=== PATIENT | female | born 1955 | race Caucasian/White ===

== ENCOUNTER 2019-11-10 13:26 | Outpatient (CLI) | payer MEDICARE, OTHER, SELFPAY ==
--- NOTE | ~2019-11-10 | MM_ITS ---
EXAMINATION: [place] [facility] [place] HISTORY: Screening mammogram TECHNIQUE: Craniocaudal and mediolateral oblique 3-D tomosynthesis images were obtained and synthetic 2-D images were generated. CAD analysis was submitted and interpreted. COMPARISON: 06/11/2018, 12/24/2016, 12/13/2015 BREAST PARENCHYMAL COMPOSITION: There are scattered areas of fibroglandular density. FINDINGS: There is no evidence of suspicious mass, calcification, or architectural distortion to sugg est malignancy in either breast. There has been no suspicious interval change. IMPRESSION: 1. No mammographic evidence of malignancy. 2. Recommend routine screening mammography in one year. BI-RADS Category 1: Negative Reviewed, dictated and finalized at location A. ANICAL SYSTEMS DESIGNER
== END 2019-11-10 13:27 | disposition home or self-care (01) ==
LOC: ANHIMG 13:32
PROVIDERS: Visit Provider Nurse Practitioner
DX: Z12.31 Encounter for screening mammogram for malignant neoplasm of breast (principal)
CPT/HCPCS: 77063; 77067

== ENCOUNTER 2019-11-10 14:21 | Outpatient (CLI) | payer MEDICARE, OTHER, SELFPAY ==
--- NOTE | ~2019-11-10 | CT_ITS ---
EXAMINATION:CT chest wo con DATE: 11/10/2019 14:52 INDICATION: Lung nodule. TECHNIQUE: Computed tomography (CT) of the chest was performed without intravenous contrast. Automate d exposure control and iterative reconstruction technique were employed. The dose-length product (DLP ) was 240.39 mGy-cm. COMPARISON: Chest CT 04/15/2019, 01/08/2018, 08/26/2017 FINDINGS: The lungs demonstrate mild atelectasis and scarring bilaterally. There is mild bronchiectas is in the inferior lungs. There is mucous plugging in the lower lobes. There are tree-in-bud opacitie s and small centrilobular nodules in the lungs with a lower lung predominance, consistent with chroni c infection. The largest nodule measures 4 mm. Calcified right lung nodules are consistent with old g ranulomatous disease. No pleural effusion. The heart size is normal. No pericardial effusion. 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 There is severe cervical spondylosis a nd moderate thoracic spondylosis. IMPRESSION: 1. Widespread mild chronic infection in the lungs. 2. Mild bronchiectasis in the lungs with a lower lung predominance. Reviewed, dictated and finalized at location A. TROCARDIOGRAPH OPERATOR
== END 2019-11-10 14:22 | disposition home or self-care (01) ==
PROVIDERS: Visit Provider Internal Medicine Pulmonary Disease
DX: R91.1 Solitary pulmonary nodule (principal); R91.8 Other nonspecific abnormal finding of lung field
CPT/HCPCS: 71250; 77063; 77067

== ENCOUNTER 2020-11-03 09:57 | Outpatient (CLI) | payer MEDICARE, OTHER, SELFPAY ==
--- NOTE | ~2020-11-03 | CT_ITS ---
EXAMINATION: CT diagnostic chest wo con DATE: 11/03/2020 10:24 INDICATION: Lung nodule TECHNIQUE: Computed tomography (CT) of the chest was performed without intravenous contrast. The dose -length product (DLP) was 105.14 mGy-cm. Automated exposure control and iterative reconstruction tech [employer] were employed. COMPARISON: 11/10/2019, 04/15/2019 FINDINGS: Again seen are several areas of clustered tree-in-bud nodules with a lower lung zone predom inance. A few areas of mucous plugging are again seen in the lower lobes. There is atelectasis of the left upper lobe. No pleural effusion or pneumothorax is identified. No suspicious pulmonary nodules are identified. Calcified nodules of the right lung are consistent with old granulomatous disease. No pathologically enlarged thoracic lymph nodes are identified. The heart size is normal. There is mode rate thoracic spondylosis. IMPRESSION: 1. Stable lung findings consistent with chronic infection. Reviewed, dictated and finalized at location A. RVISOR COKE HANDLING
== END 2020-11-03 09:58 | disposition home or self-care (01) ==
PROVIDERS: PCP Internal Medicine Pulmonary Disease
DX: R91.8 Other nonspecific abnormal finding of lung field (principal)
CPT/HCPCS: 71250

== ENCOUNTER 2020-11-28 13:39 | Outpatient (CLI) | payer MEDICARE, OTHER, SELFPAY ==
--- NOTE | ~2020-11-28 | DEXA_ITS ---
Bone Density Report Name: Elsie Sullivan Age: 64 Sex: Female Ethnicity: White Date of : 1955 Indication: osteopenia; height loss; postmenopausal; asthma or emphysema; Referring Provider: Garry, Eleni Study: Bone densitometry was performed. Exam Date: November 28, 2020 Accession number: [id number] Bone Density: Region BMD T-score Z-score Classification AP Spine (L1-L4) 1.021 -0.2 1.7 Normal Femoral Neck (Left) 0.632 -2.0 -0.3 Osteopenia Total Hip (Left) 0.803 -1.1 0.2 Osteopenia Total Hip Bilateral Avg 0.792 -1.2 0.1 Osteopenia Femoral Neck (Right) 0.630 -2.0 -0.4 Osteopenia Total Hip (Right) 0.781 -1.3 0.0 Osteopenia World Health Organization criteria for BMD impression classify patients as: Normal (T-score at or above -1.0), Osteopenia (T-score between -1.0 and -2.5), or Osteoporosis (T-score at or below -2.5). 10-year Fracture Risk(1): Major Osteoporotic Fracture 10% Hip Fracture 1.6% Reported Risk Factors: [place] (), Neck BMD=0.630, BMI=31.1 (1) FRAX(R) Version 3.08. Fracture probability calculated for an untreated patient. Fracture probability may be lower if the patient has received treatment. Previous Exams: Region Exam Age BMD T-score BMD Change BMD Change Date g/cm2 vs Baseline vs Previous AP Spine(L1-L4) 11/28/2020 64 1.021 -0.2 -0.008(-0.8%)# 0.092(9.9%)* 12/24/2016 61 0.929 -1.1 -0.100(-9.8%)# -0.053(-5.4%)* 08/11/2014 58 0.982 -0.6 -0.047(-4.6%)# -0.047(-4.6%)# 09/10/2010 54 1.029 -0.2 Total Hip(Left) 11/28/2020 64 0.803 -1.1 0.020(2.5%)# -0.012(-1.5%) 12/24/2016 61 0.815 -1.0 0.032(4.1%)# 0.007(0.8%) 08/11/2014 58 0.809 -1.1 0.025(3.2%)# 0.025(3.2%)# 09/10/2010 54 0.783 -1.3 Total Hip(Right) 11/28/2020 64 0.781 -1.3 0.001(0.1%)# -0.052(-6.3%)* 12/24/2016 61 0.833 -0.9 0.053(6.8%)# -0.010(-1.1%) 08/11/2014 58 0.843 -0.8 0.063(8.0%)# 0.063(8.0%)# 09/10/2010 54 0.780 -1.3 *Denotes significance at 95% confidence level, LSC for AP Spine = 0.022 g/cm2, LSC for Total Hip = 0.027 g/cm2 Clinical Information Provided by Patient: Has used the following medications: Calcium Has the following medical conditions: Asthma or Emphysema Patient maximum height was 67 Menopause Age: 48 No regular weight bearing exercise Drinks caffeinated beverages Onset of menses at age 13 Number of children 2 Impression: Tulio pérez
--- NOTE | ~2020-11-28 | MM_ITS ---
EXAMINATION: MM screening [facility] HISTORY: Screening mammogram TECHNIQUE: Craniocaudal and mediolateral oblique 3-D tomosynthesis images were obtained and synthetic 2-D images were generated. CAD analysis was submitted and interpreted. COMPARISON: , 06/11/2018, 12/2016 bilateral digital screening mammogram examinations BREAST PARENCHYMAL COMPOSITION: There are scattered areas of fibroglandular density. FINDINGS: Benign-appearing stable circumscribed approximately 4 mm left axillary tail lymph node. The re is no evidence of suspicious mass, calcification, or architectural distortion to suggest malignanc y in either breast. There has been no suspicious interval change. IMPRESSION: 1. No mammographic evidence of malignancy. 2. Recommend routine screening mammography in one year. BI-RADS Category 2: Benign finding(s). Reviewed, dictated and finalized at location A. [facility]
== END 2020-11-28 13:40 | disposition home or self-care (01) ==
PROVIDERS: PCP Internal Medicine Pulmonary Disease; Visit Provider Nurse Practitioner
DX: Z12.31 Encounter for screening mammogram for malignant neoplasm of breast (principal); Z78.0 Asymptomatic menopausal state; M85.852 Other specified disorders of bone density and structure, left thigh; M85.851 Other specified disorders of bone density and structure, right thigh
CPT/HCPCS: 77063; 77067; 77080

== ENCOUNTER → 2022-03-07 13:57 | Outpatient (CLI) | payer MEDICARE, OTHER, SELFPAY ==
--- NOTE | ~2022-03-07 | CT_ITS ---
EXAMINATION: CT diagnostic chest wo con DATE: 03/07/2022 14:20 INDICATION: Lung nodule TECHNIQUE: Computed tomography (CT) of the chest was performed without intravenous contrast. Automate d exposure control and iterative reconstruction technique were employed. Exam dose: 88.44 mGy-cm tot al exam DLP. COMPARISON: November 03, 2020 CT chest FINDINGS: New 4 mm right apical nodular density (series 4 image 23). There are scattered tree-in-bud infiltrates involving particularly middle lobe and right lower lobe, increased since 11/03/2020, likely infectious or inflammatory. No other significant new mass or finding is noted. There is chronic discoid atelectasis or scarring a t the lingula. Normal heart size. No pericardial or pleural effusion. Small sliding hiatal hernia. Cholelithiasis. Normal morphology of the adrenal glands. No suspicious osteolytic or osteoblastic lesions are noted. IMPRESSION: Millimeter right apical nodule and increased tree-in-bud infiltrates at middle and right lower lobe since November 03, [address] Six-month CT follow-up is recommended Reviewed, dictated and finalized at Location A. Reviewed, dictated and finalized at location A. IMPRESSION: Millimeter right apical nodule and increased tree-in-bud infiltrate s at middle and right lower lobe since November 03, [address] Six-month CT follow-up is recommended
== END ==
PROVIDERS: PCP Family Medicine
DX: R91.8 Other nonspecific abnormal finding of lung field (principal)
CPT/HCPCS: 71250

== ENCOUNTER → 2022-03-07 14:02 | Outpatient (CLI) | payer MEDICARE, OTHER, SELFPAY ==
--- NOTE | ~2022-03-07 | MM_ITS ---
EXAMINATION: MM screening [facility] HISTORY: Screening TECHNIQUE: Craniocaudal and mediolateral oblique 3-D tomosynthesis images were obtained and synthetic 2-D images were generated. CAD analysis was submitted and interpreted. COMPARISON: Comparison to multiple prior studies sequentially, with oldest reviewed study dated 08/22. BREAST PARENCHYMAL COMPOSITION: There are scattered areas of fibroglandular density. FINDINGS: There is no evidence of suspicious mass, calcification, or architectural distortion to sugg est malignancy in either breast. There has been no suspicious interval change. IMPRESSION: 1. No mammographic evidence of malignancy. 2. Recommend routine screening mammography in one year. BI-RADS Category 1: Negative Reviewed, dictated and finalized at location A.
== END ==
PROVIDERS: PCP Family Medicine; Visit Provider Obstetrics & Gynecology Gynecology
DX: Z12.31 Encounter for screening mammogram for malignant neoplasm of breast (principal)
CPT/HCPCS: 77063; 77067

== ENCOUNTER 2022-09-03 13:10 | Outpatient (CLI) | payer MEDICARE, OTHER, SELFPAY ==
--- NOTE | ~2022-09-03 | CT_ITS ---
EXAMINATION: CT diagnostic chest wo con DATE: 09/03/2022 14:18 INDICATION: Pulmonary nodules TECHNIQUE: Computed tomography (CT) of the chest was performed without intravenous contrast. The dose -length product (DLP) was 109.87 mGy-cm. Automated exposure control and iterative reconstruction tech nique were employed. COMPARISON: 03/07/2022, 11/03/2020 FINDINGS: Again seen are multiple small nodules of the right lung apex, without significant change. T here is mildly increasing nodules of the left lung apex. Additional scattered pulmonary nodules are s een in the right upper lobe, the right middle lobe, and the lingula. No pleural effusion or pneumotho rax. Chronic calcified nodules of the right upper lobe are consistent with old granulomatous disease. 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 No pathologically enla rged thoracic lymph nodes are identified. The heart size is normal. Calcified coronary artery atheros clerosis is noted. Stones are present in the nondistended gallbladder. There is mild thoracic spondyl osis. IMPRESSION: 1. Scattered pulmonary nodules, stable in the right lung apex, slightly increased in the left lung ap ex, and some new in the right lung, likely sequela of chronic infection. Reviewed, dictated and finalized at location A. X CASTER IMPRESSION: 1. Scattered pulmonary nodules, stable in the right lung apex, slightly increas ed in the left lung apex, and some new in the right lung, likely sequela of chr onic infection.
== END 2022-09-03 13:11 | disposition home or self-care (01) ==
LOC: ANHIMG 13:15
PROVIDERS: Visit Provider Internal Medicine Pulmonary Disease
DX: R91.8 Other nonspecific abnormal finding of lung field (principal)
CPT/HCPCS: 71250

== ENCOUNTER 2025-07-21 10:02 | Outpatient (CLI) | payer MEDICARE, OTHER, SELFPAY ==
--- OUTSIDE RECORDS SUMMARY | 2025-07-21 11:00 | XMS_ITS | Encounter Summary ---
Author Organization [facility] Address [facility] [place] [address] Care Team Providers Care Caster Helper Name Role Phone Anthony Oliver DO Primary Care Provider [phone] Dotty Concepcion NP Primary Care Provider [phone] Rambo Edward MD Primary Care Provider [phone] Zayda Reyes MD Primary Care Provider [phone] Butch Ulrich MD Primary Care Provider [phone] Encounter Details Date Type Department Care Team (Latest Contact Info) Description 06/19/2018 Abstract [facility] Anthony Oliver DO [address] [id number] Social History Tobacco Use Types Packs/Day Years Used Date Smoking Tobacco: Never Assessed Comments Unknown Sex and Gender Information Value Date Recorded Sex Assigned at Not on file Legal Sex Female 10:07 AM CDT Gender Identity Not on file Sexual Orientation Not on file documented as of this encounter Plan of Treatment Not on file documented as of this encounter Visit Diagnoses Not on filedocumented in this encounter Care Teams Caster Helper Relationship Specialty Start Date End Date Anthony Oliver DO PCP - General FAMILY PRACTICE 02/28/16 01/19/20 oDtty Concepcion NP [address] [place] [address] PCP - General NURSE PRACTITIONER 01/20/20 05/03/20 Rambo Edward MD [address] [place] [address] PCP - General FAMILY PRACTICE 05/04/20 04/18/22 Zayda Reyes MD [facility] [place] [address] PCP - General FAMILY PRACTICE 04/19/22 10/15/23 Butch Ulrich MD [address] [place] [address] PCP - General FAMILY PRACTICE 10/16/23 documented as of this encounter
--- OUTSIDE RECORDS SUMMARY | 2025-07-21 11:00 | XMS_ITS | Encounter Summary ---
Author Organization [facility] Address [facility] [place] [address] Care Team Providers Care Icing Maker Name Role Phone Butch Ulrich MD Primary Care Provider [phone] Encounter Details Date Type Department Care Team (Late st Contact Info) Description 10/15/2024 [facility] [address] [place] [address] Zayda Reyes MD [address] [place] [address] abn MG Social History Tobacco Use Types Packs/Day Years Used Date Smoking Tobacco: Former Smokeless Tobacco: Never Alcohol Use Standard Drinks/Week Comments Yes 0 (1 standard drink = 0.6 oz pur e alcohol) wine daily PHQ-2 Answer Date Recorded Patient Health Questionnaire-2 Score 0 05/12/2023 Comments No Sex and Gender Information Value Date Recorded Sex Assigned at Not on file Legal Sex Female 10:07 AM CDT Gender Identity Not on file Sexual Orientation Not on file documented as of this encounter Plan of Treatment Not on file documented as of this encounter Visit Diagnoses Not on filedocumented in this encounter Additional Health Concerns Assessment Noted Time PHQ-9 Depression Total Score: 0 05/12/20 23 8:08 AM CDT documented as of this encounter Care Teams Icing Maker Relationship Specialty Start Date End Date Butch Ulrich MD PCP - General FAMILY PRACTICE 10/16/23 documented as of this encounter
--- OUTSIDE RECORDS SUMMARY | 2025-07-21 11:00 | XMS_ITS | Encounter Summary ---
Author Organization [facility] Address [address] [place] [address] Care Team Providers Care Leveler Helper Name Role Phone Zayda Reyes MD Primary Care Provider [phone] Butch Ulrich MD Primary Care Provider [phone] Encounter Details Date Type Department Care Team (Late st Contact Info) Description 03/19/2023 MyChart Message Enc [facility] Medical [facility] - [facility] [address] [place], [place] [id number] [facility] [place] Provider Air Quality Message Social History Tobacco Use Types Packs/Day Years Used Date Smoking Tobacco: Former Smokeless Tobacco: Never Alcohol Use Standard Drinks/Week Comments Yes 0 (1 standard drink = 0.6 oz pur e alcohol) wine daily PHQ-2 Answer Date Recorded Patient Health Questionnaire-2 Score 0 01/31/2023 Comments No Sex and Gender Information Value [...] Assessment Noted Time PHQ-9 Depression Total Score: 4 05/08/20 22 8:09 AM CDT documented as of this encounter Care Teams Leveler Helper Relationship Specialty Start Date End Date Zayda Reyes MD [address] [id number] PCP - General FAMILY PRACTICE 04/19/22 10/15/23 Butch Ulrich MD [address] [place] [address] PCP - General FAMILY PRACTICE 10/16/23 documented as of this encounter
--- OUTSIDE RECORDS SUMMARY | 2025-07-21 11:00 | XMS_ITS | Clinical Summary ---
Author Organization [facility] Address [address] [place] [address] Care Team Providers Care Client Care Representative Name Role Phone Butch Ulrich MD Primary Care Provider [phone] Allergies No known active allergies Medications Ventolin HFA 90 mcg/actuation inhalerIndications :Asthma, unspecified asthma severity, unspecified whether complicated, unspecified whether persistent Inhale 2 puffs every 4 (four) hours as needed for wheezing or shortness of breath 1 each 3 07/06/20 21 Active fluticasone propionate (FLONASE) 50 mcg/actuation nasal spray daily Active tezepelumab-ekko (TEZSPIRE) 210 mg/1.91 mL (110 mg/mL) syringe 210 mg (1.91 mL) Active gabapentin (NEURONTIN) 300 mg capsule Take 1 capsule (300 mg total) by mouth 2 (two) times a day 04/13/20 24 Active venlafaxine XR (EFFEXOR-XR) 150 mg 24 hr capsule Take 1 capsule (150 mg total) by mouth daily 03/09/20 24 Active zolpidem (AMBIEN) 10 mg tablet Take 1 tablet (10 mg total) by mouth nightly 04/13/20 24 Active ipratropium-albute roL (DUO-NEB) 0.5-2.5 mg/3 mL nebulizer solution Take 3 mL by nebulization 4 (four) times a day 360 mL 2 11/16/19 25 Active levothyroxine (SYNTHROID) 100 mcg tabletIndications: Acquired hypothyroidism Take 1 tablet (100 mcg total) by mouth daily 90 tablet 1 03/08/20 25 025 Active tirzepatide, weight loss, (Zepbound) 2.5 mg/0.5 mL solution vialIndications:Ov erweight with body mass index (BMI) of 29 to 29.9 in adult Inject 0.5 mL (2.5 mg total) under the skin once a week This medication record is used for ordering a prescription for Charo Direct Tristan 2 mL 04/29/20 25 Active Active Problems Problem Noted Date Diagnosed Date Overweight with body mass in dex (BMI) of 29 to 29.9 in adult 03/08/2025 Assessment & Plan (03/08/2025 2:18 PM CDT): Chronic. Uncontrolled. Goal: 165lb Recommend Nutritional every other Friday Seminar. Recommended Medication :start Zepbound Asthma 05/15/2016 Assessment & Plan (05/12/2024 2:40 PM CDT): The patient continues to benefit from Breo 1 puff daily and p.r.n. albuterol. She continues on monthly Tezspire injections. Assessment & Plan (08/20/2023 10:25 AM OCCUPATIONAL HEALTH PHYSICIAN): The patient has asthma is under good control with Breo 1 puff daily and p.r.n. albuterol. She continues on monthly Tezspire injections. Assessment & Plan (04/18/2023 10:16 AM CDT): The patient will continue with Breo. She is an albuterol inhaler to use on a p.r.n. basis and up 4 times a day as needed for symptom control. The patient will continue to follow with manager organizational and Tezpire monthly Assessment & Plan (10/02/2022 10:24 AM OCCUPATIONAL HEALTH PHYSICIAN): The patient is breathing continues to do well with Breo 1 puff daily and albuterol on a p.r.n. basis. She continues with the monthly Tezspire injections. Assessment & Plan (03/20/2022 2:58 PM CDT): The patient continues to do well on Breo 1 puff daily and albuterol p.r.n.. She is asymptomatic from a pulmonary perspective. She has been switched to Tespir injections monthly through the manager organizational's office. Assessment & Plan (07/06/2021 9:59 AM CDT): The patient will continue with Breo 1 puff daily to treat asthma symptoms. The patient is also undergoing treatments with an manager organizational. The patient will continue with albuterol inhaler/nebulizer on a p.r.n. basis and up to 4 times a day as needed for symptom control. Assessment & Plan (11/17/2020 9:52 AM OCCUPATIONAL HEALTH PHYSICIAN): The patient will continue with Breo 1 puff daily to treat asthma symptoms. The patient will also continue with allergy injections on a monthly basis. The patient has an albuterol/nebulizer at home that she may use p.r.n. up to 4 times a day as needed to control her asthma symptoms. Assessment & Plan (03/22/2020 10:25 AM CDT): The patient will continue to use her Breo 1 puff daily. The patient will also continue to get her allergy injections. The patient has an albuterol nebulizer as needed and up to 4 times a day. Cough 05/15/2016 Assessment & Plan (08/20/2023 10:25 AM OCCUPATIONAL HEALTH PHYSICIAN): Her cough has resolved. Assessment & Plan (04/18/2023 10:16 AM CDT): The patient has an occasional nonproductive cough. Pulmonary nodules 05/15/2016 Assessment & Plan (05/12/2024 2:40 PM CDT): Her pulmonary nodules have been stable now for 2 years. I will not plan to follow any more chest CTs unless clinically warranted. Assessment & Plan (08/20/2023 10:25 AM OCCUPATIONAL HEALTH PHYSICIAN): Pulmonary nodules were stable or decreased in size on the last CT from 17 April 2023. I will repeat another chest CT without contrast in late September 2023. She will follow-up with me in 6 months. Assessment & Plan (04/18/2023 10:16 AM CDT): The patient completed a CT on 04/17/2023. We are awaiting the results. I have a call the patient once the results have posted. Assessment & Plan (10/02/2022 10:24 AM OCCUPATIONAL HEALTH PHYSICIAN): The patient does have new very tiny pulmonary nodules and she is asymptomatic. Findings are suggestive of IQRA but she is asymptomatic. I will follow another chest CT in 6 months. Assessment & Plan (03/20/2022 2:59 PM CDT): The patient is clinically symptomatic but has increased tree-in-bud opacities in a new right upper lobe 4 mm nodule. I will repeat another chest CT in 6 months. Assessment & Plan (07/06/2021 9:59 AM CDT): Pulmonary nodules will continue to be monitored with the CT scan. The patient does have a CT scan ordered for October 2021 at [facility] Assessment & Plan (11/17/2020 9:53 AM OCCUPATIONAL HEALTH PHYSICIAN): The patient will obtain another CT scan to monitor pulmonary nodules of October of 2021. This order has been provided to the patient. Assessment & Plan (03/22/2020 10:36 AM CDT): The CT scanner to [id number] shows a 4 mm nodule that is stable at this time. The patient will need a follow-up CT in October 2020. The patient will have completed in [facility] Resolved Problems Problem Noted Date Diagnosed Date Resolved Date Chronic obstructive pulmonar y disease, unspecified 05/15/2016 04/18/2023 Assessment & Plan (04/09/2019 10:25 AM CDT): Patient will continue with her Xolair injections. Encounters Date Type Department Care Team Description 07/08/2025 Telephone [facility] Pulmonology [address] [place] [phone] Tia Pena MD 06/09/2025 10:25 AM CDT Lab [facility] [address] [place] [id number] from Last 3 Months Immunizations Immunization Administration Dates Next Due Influenza, Trivalent, Preservative Free, Intramu scular 07/18/2016 Surgical History Surgery Date Site/Laterality Comments THYROIDECTOMY BREAST BIOPSY 08/01/2023 Right Medical History Medical History Date Comments Asthma COPD (chronic obstructive pulmonary disease) Family History Medical History Relation Name Comments Heart failure Father COPD Mother Relation Name Status Comments Father Mother Social History Tobacco Use Types Packs/Day Years Used Date Smoking Tobacco: Former Cigarettes Q uit: 2003 Smokeless Tobacco: Never Tobacco Cessation:Counseling Given: Not Answered AUDIT-C Answer Date Recorded Q1: How often do you have a drink containing alcohol? Never 03/08/2025 Q2: How many drinks containi ng alcohol do you have on a typical day when you are drinking? Patient does not drink Q3: How often do you have si x or more drinks on one occasion? Never 03/08/2025 Personal Safety Answer Date Recorded Have you ever been in or are you currently in a harmful physical or emotional relationship or is someone making you feel afraid or unsafe? Denies 10/05/2023 Comments No Sex and Gender Information Value Date Recorded Sex Assigned at Not on file Legal Sex Female 3:30 AM OCCUPATIONAL HEALTH PHYSICIAN Gender Identity Not on file Sexual Orientation Not on file Obstetrics History Para Term AB IAB SAB Ectopic Multiple Livin g Live Births 2 2 2 Date Outcome GA Total Labor Labor/2nd/3rd Weight Sex Type Anes PTL Gail A1 A5 Name Clin Term Term Last Filed Vital Signs Vital Sign Reading Time Taken Comments Blood Pressure 128/74 03/08/2025 2:00 PM CDT Pulse 81 03/08/2025 2:00 PM CDT Temperature 36.3 C (97.4 F) 03/08/2025 2:00 PM CDT Respiratory Rate 16 03/08/2025 2:00 PM CDT Oxygen Saturation 95% 03/08/2025 2:00 PM CDT Inhaled Oxygen Concentration - - Weight 85.8 kg (189 lb 1.6 oz) 03/08/2025 2:00 P M CDT Height 170.2 cm (5' 7) 03/08/2025 2:00 PM CDT Body Mass Index 29.62 03/08/2025 2:00 PM CDT Plan of Treatment Health Maintenance Due Date Last Done Comments Colon Cancer Screening-Colonoscopy 1955 Depression Screening 1955 Fall Risk Assessment 1955 Hepatitis C Screening 1955 Osteoporosis Screening-Bone Density Scan 1955 DTaP/Tdap/Td Vaccine (1 - Tdap) 1964 Hepatitis B Screening 12/19/1971 Zoster Vaccine (1 of 2) 12/19/2003 Pneumococcal vaccine 65+ (2 of 2 - PCV) 02/10/2014 02/10/2013 Well Visit 65+ 2018 Covid-19 Vaccine (5 - 2024-2 6 season) 2025 09/10/2021, 11/02/2020, 10/03/2020, Additional history exists Influenza Vaccine (#1) 2025 , 08/22/2020, 07/23/2019, Additional history exists Breast Cancer Screening-Mammogram 06/04/2025 024, 06/19/2023 Medical Devices Implanted Type Area Decorating Machine Tender Device Identifier Shelf Expiration Date Model / Serial / Lot [employer] 13cm Rigid End Bioabsorbable Net Top Rare/Endangered Species Specialist Breast Latex Free [id number] - [id number] Implanted:Qty: 1 on 08/01/2023 by Erick Johnston MD at [facility] [employer] [id number] 01/28/2024 SMARK-EVIV [id number] / / [id number] Procedures Procedure Name Priority Date/Time Associated Diagnosis Comments EGFR Routine 06/09/2025 10:32 AM CDT T3, FREE Routine 06/09/2025 10:32 AM CDT T4, FREE Routine 06/09/2025 10:32 AM CDT TSH Routine 06/09/2025 10:32 AM CDT LIPID PANEL Routine 06/09/2025 10:32 AM CDT COMPREHENSIVE METABOLIC PANEL Routine 06/09/2025 10:32 AM CDT DIAGNOSTIC MAMMOGRAM BILATERAL W JEB Schedule Routine, Read Routine (OP Routine) 06/04/2024 8:54 AM CDT Breast calcification, right from Last 3 Months or Most Recently Relevant to Health Maintenance Results * (ABNORMAL) eGFR (06/09/2025 10:32 AM CDT) eGFR 55(L) >=60 mL/min/1. 73 m2 Comment: Interpretive Data Reference Interval Normal >/= 90 mL/min/1.73m2 Mildly decreased* 60 - 89 mL/min/1.73m2 Mildly to moderately decreased 45 - 59 mL/min/1.73m2 Moderately to severely decreased 30 - 44 mL/min/1.73m2 Severely decreased 15 - 29 mL/min/1.73m2 Kidney Failure < 15 mL/min/1.73m2 *Relative to young adult level Estimated glomerular filtration rate is determined by the 2020 CKD-EPI equation recommended by the National Kidney Foundation (A Unifying Approach to GFR Estimation: Recommendations of the NKF-ASK Task Force on Reassessing the Inclusion of Race in Diagnosing Kidney Disease, JASN 202). The CKD-EPI equation should not be used for patients with unstable renal function and has not been validated in children and those over 70. Current interpretive data was last reviewed 2021. Testing performed by: [facility], [address] [place] [address]., [id number] Blood 06/09/2025 10:3 2 AM CDT 06/09/2025 10:47 AM CDT us Butch Ulrich MD LAB BLOOD ORDERABLES Final Resu lt [facility] [address] Department [place] [address] * T3, free (06/09/2025 10:32 AM CDT) Free T3 2.5 2.0 - 4.4 pg/mL Blood 06/09/2025 10:3 2 AM CDT 06/09/2025 12:24 PM CDT Butch Ulrich MD LAB BLOOD ORDERABLES Final Resu lt Performing Organization Address City/[facility] Co de Phone Number [address]REG[address] [place] [address] * TSH (06/09/2025 10:32 AM CDT) Thyroid Stimulating Hormone 0.38 0.30 - 4.20 mcIUnit/mL Comment:Testing performed by : [address] [address] Blood 06/09/2025 10:3 2 AM CDT 06/09/2025 10:47 AM CDT Butch Ulrich MD LAB BLOOD ORDERABLES Final Resu lt Performing Organization Address [facility] Co de Phone Number [address] [address] * T4, free (06/09/2025 10:32 AM CDT) Free T4 1.27 0.90 - 1.70 ng/dL Comment:Testing performed by : [address] [address] Blood 06/09/2025 10:3 2 AM CDT 06/09/2025 10:47 AM CDT Butch Ulrich MD LAB BLOOD ORDERABLES Final Resu lt Performing Organization Address [facility] Co de Phone Number GREG[address] [place] [address] * Lipid panel (06/09/2025 10:32 AM CDT) Cholesterol 175 30 - 199 mg/dL Comment: Interpretive Data Ages < or = 19 years Acceptable: <170 mg/dL Borderline high: 170-199 mg/dL High: >or= 200 mg/dL Ages > or = 20 years Desirable: <200 mg/dL Borderline high: 200-239 mg/dL High: >or= 240 mg/dL Literature References: 1. Expert Panel on Integrated Guidelines for Cardiovascular Health and Risk Reduction in Children and Adolescents. Pediatrics 2011;128:S213 2. NCEP Expert Panel. Circulation 2004;110:227 Current Interpretive Data was last revised on 2018. Testing performed by: [address] [address] Triglycerides 56 <=149 mg/dL [facility] Comment: Interpretive Data Ages < or = 9 years Acceptable: <75 mg/dL Borderline high: 75-99 mg/dL High: >or= 100 mg/dL Ages 10 to 20 years Acceptable: <90 mg/dL Borderline high: 90-129 mg/dL High: >or= 130 mg/dL Ages > or = 20 years Desirable: <150 mg/dL Borderline high: 150-199 mg/dL High: 200-499 mg/dL Very high: >or= 499 mg/dL Literature References: 1. Expert Panel on Integrated Guidelines for Cardiovascular Health and Risk Reduction in Children and Adolescents. Pediatrics 2011;128:S213 2. NCEP Expert Panel. Circulation 2003;110:227 Current Interpretive Data was last revised on 2018. Testing performed by: [address] [address] HDL 77 >=40 mg/dL [facility] Comment: Interpretive Data Ages < or = 19 years Acceptable: >45 mg/dL Borderline low: 40-45 mg/dL Low: <40 mg/dL Ages > or = 20 years Desirable: >or= 60 mg/dL Low: <40 mg/dL Literature References: 1. Expert Panel on Integrated Guidelines for Cardiovascular Health and Risk Reduction in Children and Adolescents. Pediatrics 2011;128:S213 2. NCEP Expert Panel. Circulation 2004;110:227 Current Interpretive Data was last revised on 2018. Testing performed by: [address] [address] LDL, calculated 87 <=129 mg/dL [facility] Comment: Interpretive Data Ages < or = 19 years Acceptable: <110 mg/dL Borderline high: 110-129 mg/dL High: >or= 130 mg/dL Ages > or = 20 years Optimal: <100 mg/dL Near optimal: 100-129 mg/dL Borderline high: 130-159 mg/dL High: >160 mg/dL Calculated using the Rohit LDL-C estimating equation. This equation was implemented on 2024. Prior to this date LDL-C was estimated using the Friedewald equation. Literature References: 1. Expert Panel on Integrated Guidelines for Cardiovascular Health and Risk Reduction in Children and Adolescents. Pediatrics 2011;128:S213 2. NCEP Expert Panel. Circulation 2004;110:227 3. Rohit Burnett et al. ROBERTO Cardiol. 2019January 20;5(5):540-548. doi: 10.1001/jamacardio.2020.0013 Current Interpretive Data was last revised on 2024. Testing performed by: [address] [address] Non-HDL Cholesterol 98 mg/dL [facility] Comment: Interpretive Data Ages < or = 19 years Acceptable: <120 mg/dL Borderline high: 120-144 mg/dL High: >145 mg/dL Ages > or = 20 years When triglycerides are >200 mg/dL, Non-HDL cholesterol is a secondary target of therapy with treatment goals that are 30 mg/dL greater than the LDL cholesterol target. Literature References: 1. Expert Panel on Integrated Guidelines for Cardiovascular Health and Risk Reduction in Children and Adolescents. Pediatrics 2011;128:S213 2. NCEP Expert Panel. Circulation 2004;110:227 Current Interpretive Data was last revised on 2018. Testing performed by: [address] [address] Chol/HDL ratio 2 [facility] Comment:Testing performed by : [address] [address] Blood 06/09/2025 10:3 2 AM CDT 06/09/2025 10:47 AM CDT Butch Ulrich MD LAB BLOOD ORDERABLES Final Resu lt [facility] [address] Department [place] [address] * (ABNORMAL) Comprehensive metabolic panel (06/09/2025 10:32 AM CDT) Sodium 140 135 - 145 mmol/L Comment:Testing performed by : [address] [address] Potassium, pl 3.9 3.3 - 4.9 mmol/L [facility] Comment:Testing performed by : [address] [address] Chloride 103 97 - 110 mmol/L [facility] Comment:Testing performed by : [address] [address] CO2 26 22 - 32 mmol/L [facility] Comment:Testing performed by : [address] [address] Anion gap 11 2 - 15 mmol/L [facility] Comment:Testing performed by : [address] [address] BUN 15 6 - 25 mg/dL [facility] Comment:Testing performed by : [address] [address] Creatinine 1.08 0.60 - 1.10 mg/dL [facility] Comment:Testing performed by : [address] [address] Glucose 108 70 - 199 mg/dL [facility] Comment: Interpretive Data Fasting glucose >/= 126 mg/dl is diagnostic for diabetes. Fasting is defined as no caloric intake for at least 8 hours. Fasting glucose between 100 mg/dl to 125 mg/dl is diagnostic of prediabetes. In a patient with classic symptoms of hyperglycemia or hyperglycemic crisis, a random glucose >/= 200 mg/dl is diagnostic for diabetes. In the absence of unequivocal hyperglycemia, results should be confirmed by repeat testing. The classification and Diagnosis of Diabetes Diabetes Care 202; 46: S19-S40. Current interpretive data was last revised 2022. Testing performed by: [address] [address] Calcium 8.0(L) 8.5 - 10.3 mg/dL [facility] Comment:Testing performed by : [address] [address] Bilirubin, total 0.3 0.1 - 1.2 mg/dL [facility] Comment:Testing performed by : [address] [address] Protein, pl 7.1 6.5 - 8.5 g/dL [facility] Comment:Testing performed by : [address] [address] Albumin 4.1 3.5 - 5.0 g/dL [facility] Comment:Testing performed by : [address] [address] Alk phos 81 40 - 130 Units/L [facility] Comment:Testing performed by : [address] [address] ALT 23 7 - 45 Units/L [facility] Comment:Testing performed by : [address] [address] AST 25 10 - 45 Units/L [facility] Comment:Testing performed by : [address] [address] Blood 06/09/2025 10:3 2 AM CDT 06/09/2025 10:47 AM CDT us Butch Ulrich MD LAB BLOOD ORDERABLES Final Resu lt Performing Organization Address City/State/[facility] Co de Phone Number [facility] [address] Department [place] [address] * Diagnostic Mammogram Bilateral W Jeb (06/04/2024 8:54 AM CDT) Anatomical Region Laterality Modality Breast Bilateral Mammography 06/04/2024 8:56 AM CDT Narrative 06/04/2024 8:57 AM CDT EXAM DESCRIPTION: DIAGNOSTIC MAMMOGRAM BILATERAL W JEB REASON FOR STUDY: 68-year-old woman comes in today follow-up of the right breast after a benign biopsy performed in July 2023, and screening of the left breast. COMPARISON: 08/01/2023, 07/11/2023, 06/19/2023. TECHNIQUE: CC and MLO digital breast tomosynthesis of both breasts with C view was performed. FINDINGS: DENSITY: There are scattered areas of fibroglandular density. There are expected post biopsy changes in the right breast. The top hat shaped biopsy marker clip is in unchanged position. There are no new suspicious findings in either breast on mammogram. IMPRESSION: Expected post biopsy changes in the right breast. No new suspicious findings seen in either breast on mammogram. Continued monthly breast self exam recommended, and return to annual screening mammography schedule. BIRADS: 2 - Benign The patient was notified of the results at the time of the examination. THIS IS AN ELECTRONICALLY VERIFIED FINAL REPORT 06/04/2024 8:57 AM - Electronically signed by Jose Wood M.D. RL: EMERALD Report ID: [id number] Reading Location: [facility] Erick Johnston MD IMG MAMMO PROCEDURES Final Res ult from Last 3 Months or Most Recently Relevant to Health Maintenance Insurance MEDICARE [facility] MEDICARE [facility] [place] [phone] [employer] Care Teams Client Care Representative Relationship Specialty Start Date End Date Butch Ulrich MD [address] [place] [id number] PCP - General Family Medicine 03/08/25
--- OUTSIDE RECORDS SUMMARY | 2025-07-21 11:00 | XMS_ITS | Clinical Summary ---
Author Organization [facility] Address [address] [place] [address] Care Team Providers Care Director Investor Relations Name Role Phone Butch Ulrich MD Primary Care Provider [phone] Allergies No known active allergies Medications PROAIR HFA 108 (90 Base) MCG/ACT inhaler INHALE 2 PUFFS PO QID PRN 1 11/24/19 19 Active venlafaxine XR 75 MG 24 hr capsuleIndications :Anxiety Take 1 capsule (75 mg total) by mouth daily. 2 08/23/20 19 Active diclofenac EC (VOLTAREN) 50 MG tabletIndications: Acute right-sided low back pain with right-sided sciatica TAKE 1 TABLET(50 MG) BY MOUTH TWICE DAILY NEEDED 20 tablet 04/18/20 22 Active Additional Information Patient not taking.Reported on 05/12/2023 traZODone (DESYREL) 50 MG tabletIndications: Primary insomnia TAKE 2 TABLETS(100 MG) BY MOUTH EVERY NIGHT AT BEDTIME 30 tablet 01/24/20 23 Active Additional Information Patient not taking.Reported on 05/12/2023 predniSONE (DELTASONE) 20 MG tablet daily. 07/02/20 22 Active Fluticasone-Umecli din-Vilant (TRELEGY ELLIPTA) 200-62.5-25 MCG/ACT AEROSOL POWDER, BREATH ACTIVATED daily. Active fluticasone furoate-vilanterol (BREO ELLIPTA) 200-25 MCG/ACT inhaler daily. Active famotidine (PEPCID) 10 MG tablet 1 tab(s) Active EPINEPHrine 0.3 MG/0.3ML injection 0.3 mLs (0.3 mg total). Active Calcium Carb-Cholecalcifer ol (CALCIUM CARBONATE+VITAMIN D OR) Active Cholecalciferol (VITAMIN D3) 50 MCG (2000 UT) Cap daily. Ac tive tezepelumab-ekko (TEZSPIRE) 210 MG/1.91ML Solution Prefilled Syringe injection 210 mg (1.91 mL) Active fluticasone propionate (FLONASE) 50 MCG/ACT nasal spray daily. Active cetirizine (ZYRTEC) 10 MG tablet daily. Active traZODone (DESYREL) 100 MG tabletIndications: Primary insomnia Take 1 tablet (100 mg total) by mouth nightly at bedtime. 90 tablet 1 02/01/20 23 Active levothyroxine (SYNTHROID) 100 MCG tabletIndications: Hypothyroidism, unspecified type Take 1 tablet (100 mcg total) by mouth every morning. 90 tablet 02/01/20 23 Active atorvastatin (LIPITOR) 40 MG tabletIndications: Mixed hyperlipidemia Take 1 tablet (40 mg total) by mouth nightly at bedtime. 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[facility]) Juan 1 tab BID 180 capsule 1 05/12/20 23 Active Active Problems Problem Noted Date Diagnosed Date Acute bronchitis 01/31/2023 Allergic rhinitis 01/31/2023 Allergic rhinitis due to animal hair and dander 01/31/2023 Allergic rhinitis due to pollen 01/31/2023 Chronic allergic conjunctivitis 01/31/2023 Chronic sinusitis 01/31/2023 Corticosteroids adverse reaction 01/31/2023 Dysphagia 01/31/2023 Elevated blood pressure read ing without diagnosis of hypertension 01/31/2023 History of systemic steroid therapy 01/31/2023 Uncomplicated severe persistent asthma 3 Rash 01/31/2023 Vitamin D deficiency 01/31/2023 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 I will repeat another chest CT in 6 months. Chronic obstructive pulmonary disease, unspecifi ed 05/15/2016 Overview (05/08/2022): Last Assessment & Plan: Patient will continue with her Xolair injections. 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 She is asymptomatic from a pulmonary perspective. She has been switched to Tespir injections monthly through the kinesiology internship's office. Abdominal pain 04/19/2016 01/31/2023 Back spasm 04/19/2016 01/31/2023 Abnormal ultrasound 04/18/2016 02/01/20 Encounter for screening for malignant neoplasm of colon 06/07/2015 05/13/2022 Dizziness 06/16/2014 01/31/2023 Lower back pain 08/31/2012 01/31/2023 Muscle spasm 08/28/2012 01/31/2023 Encounter for preventive health examination 06/27/2012 06/02/2020 Immunizations Immunization Administration Dates Next Due Fluad influenza vaccine, Philip drivalent (aIIV4), Inactivated, adjuvanted, preservative free, 0.5 mL,IM use 07/25/2022 Influenza (Generic) 07/23/2017, 6,07/04/2015,2013 Influenza Adult (Generic) 08/22/2020,09/2018,06/29/2019,2018 [employer] COVID-19 (ORIGINAL FORMULATION, PURPLE CAP) mRNA, LNP-S, PF, 30 MCG/0.3 ML DOSE 11/02/2020 Pneumococcal (Pneumovax 23) 02/10/2013 Pneumococcal (Prevnar 20) 05/12/2023 Family History Medical History Relation Comments CHF Father Hypertension Mother Relation Status Comments Father Mother Social History Tobacco Use Types Packs/Day Years Used Date Smoking Tobacco: Former Smokeless Tobacco: Never Tobacco Cessation:Counseling Given: No Alcohol Use Standard Drinks/Week Comments Yes 0 (1 standard drink = 0.6 oz pur e alcohol) wine daily PHQ-2 Answer Date Recorded Patient Health Questionnaire-2 Score 0 05/12/2023 Comments No Sex and Gender Information Value Date Recorded Sex Assigned at Not on file Legal Sex Female 10:07 AM CDT Gender Identity Not on file Sexual Orientation Not on file Last Filed Vital Signs Vital Sign Reading Time Taken Comments Blood Pressure 132/77 06/12/2023 1:16 PM CDT Pulse 79 05/12/2023 8:09 AM CDT Temperature 36.6 C (97.9 F) 05/12/2023 8:09 AM CDT Respiratory Rate 16 05/12/2023 8:09 AM CDT Oxygen Saturation 99% 05/12/2023 8:09 AM CDT Inhaled Oxygen Concentration - - Weight 83.5 kg (184 lb) 05/12/2023 8:09 AM CDT Height 167.6 cm (5' 6) 05/12/2023 8:09 AM CDT Body Mass Index 29.7 05/12/2023 8:09 AM CDT Plan of Treatment Health Maintenance Due Date Last Done Comments DTaP, Tdap and Td Vaccines (1 - Tdap) 1972 Zoster Vaccines (1 of 2) 12/19/2003 RSV Immunization or 60+ Years (1 - Risk 60-74 years 1-dose series) 2013 Annual Medicare Wellness Visit 2018 Dexa Scan (General) 2018 PHQ-2 (Physician [employer]) 09/22/2024 COVID-19 Vaccine ( season) 2025 07/25/2022, 09/10/2021, 11/02/2020, Additional history exists Influenza Adult (#1) 2025 07/25/2022, 08/22/2020, 07/23/2019, Additional history exists Mammogram Screening 07/11/2025 07/11/2023, 2 Colorectal Cancer Screening Colonoscopy (10 Years) 04/29/2026 Hepatitis C Completed 05/08/2022 Pneumococcal Vaccine: 50+ Years Completed 05/12/2023, 02/10/2013 Hepatitis A Vaccines Aged Out No long er eligible based on patient's age to complete this topic Meningococcal B Vaccine Aged Out No l onger eligible based on patient's age to complete this topic Meningococcal Vaccine Aged Out No nayeli neil eligible based on patient's age to complete this topic RSV Immunizations Under 20 Months Aged Out No longer eligible based on patient's age to complete this topic Procedures Procedure Name Priority Date/Time Associated Diagnosis Comments MG SCREENING ARTURO DIGI Routine 07/11/2023 12:00 AM CDT Encounter for screening mammogram for malignant neoplasm of breast HEPATITIS C ANTIBODY Routine 05/08/2022 9:31 AM CDT Annual physical exam from Last 3 Months or Most Recently Relevant to Health Maintenance Results * MG SCREENING ARTURO DIGI (07/11/2023 12:00 AM CDT) Anatomical Region Laterality Modality Breast Bilateral Mammography 07/11/2023 us Zayda Reyes MD MAMMO Final Result * HEPATITIS C ANTIBODY (05/08/2022 9:31 AM CDT) HEPATITIS C AB NON-REACTI VE NON-REACT ANDRZEJ 05/08/2022 9:43 PM CDT [facility] Comment: ANTIBODIES TO HCV NOT DETECTED. DOES NOT EXCLUDE THE POSSIBILITY OF EXPOSURE TO HCV. 05/08/2022 9:31 AM CDT us Zayda Reyes MD LABORATORY Final Result [facility] [address] [place] [address], [place] [phone] [id number] from Last 3 Months or Most Recently Relevant to Health Maintenance Insurance MEDICARE [facility] Care Teams Director Investor Relations Relationship Specialty Start Date End Date Butch Ulrich MD PCP - General FAMILY PRACTICE 10/16/23
--- OUTSIDE RECORDS SUMMARY | 2025-07-21 11:00 | XMS_ITS | Patient Health Record ---
Author Organization [facility] [employer] [place] ([address]) Address [address] [place] [address] Care Team Providers Care Heel Former Name Role Phone Butch Ulrich MD Primary Care Provider UnavailLola Roldan Unavailable [phone] Brian Aly MD Unavailable Unavailable Quinten Cruz Unavailable [phone] Allergies No Known Allergies Results Component Value Reference Range Notes Spirometry Reviewed date:08/25/2024 02:15:20 PM Interpretation:Abnormal Performing Lab: Notes/Report: Abnormal SpiroPreBronchodilator_FVC 2.26 SpiroPostBronchodilator_FEF25_75 0 SpiroPreBronchodilator_FEF25_75 0.65 SpiroPreBronchodilator_FEV1 1.37 SpiroPrecentPredictionPost_FEF25_75 0 SpiroPrecentPredictionPost_FEV1 0 SpiroPrecentPredictionPost_FEV1_OVER_FVC 0 SpiroPrecentPredictionPost_FVC 0 SpiroPrecentPredictionPre_FEF25_75 31.2 SpiroPrecentPredictionPre_FEV1 55.7 SpiroPrecentPredictionPre_FEV1_OVER_FVC 81 SpiroPrecentPredictionPre_FVC 69.5 SpiroPredicted_FEF25_75 2.08 SpiroPreBronchodilator_FEV1_OVER_FVC 60.38 SpiroPreBronchodilator_PEF 4.45 SpiroPostBronchodilator_FVC 0 SpiroPostBronchodilator_FEV1 0 SpiroPostBronchodilator_FEV1_OVER_FVC 0 SpiroPostBronchodilator_PEF 0 SpiroPredicted_FVC 3.25 SpiroPredicted_FEV1 2.46 SpiroPredicted_FEV1_OVER_FVC 74.56 SpiroPredicted_PEF 5.85 Spirometry Reviewed date:05/04/2025 01:52:26 PM Interpretation:Abnormal Performing Lab: Notes/Report: Abnormal SpiroPreBronchodilator_FVC 1.9 SpiroPostBronchodilator_FEF25_75 0 SpiroPreBronchodilator_FEF25_75 0.78 SpiroPreBronchodilator_FEV1 1.29 SpiroPrecentPredictionPost_FEF25_75 0 SpiroPrecentPredictionPost_FEV1 0 SpiroPrecentPredictionPost_FEV1_OVER_FVC 0 SpiroPrecentPredictionPost_FVC 0 SpiroPrecentPredictionPre_FEF25_75 38.2 SpiroPrecentPredictionPre_FEV1 53.1 SpiroPrecentPredictionPre_FEV1_OVER_FVC 91.4 SpiroPrecentPredictionPre_FVC 58.8 SpiroPredicted_FEF25_75 2.04 SpiroPreBronchodilator_FEV1_OVER_FVC 67.89 SpiroPreBronchodilator_PEF 4.26 SpiroPostBronchodilator_FVC 0 SpiroPostBronchodilator_FEV1 0 SpiroPostBronchodilator_FEV1_OVER_FVC 0 SpiroPostBronchodilator_PEF 0 SpiroPredicted_FVC 3.23 SpiroPredicted_FEV1 2.43 SpiroPredicted_FEV1_OVER_FVC 74.31 SpiroPredicted_PEF 5.83 Reason For Referral No Information Medications Medication SIG (Take, Route, Frequency, Duration) Notes Start Date End Date Status PREDNISONE 20 mg 3 tab(s) orally once a day; Duration: 5 day(s) 07/02/2022 Not-Taking Breo Ellipta 200 MCG-25 MCG/INH 1 PUFF(S) INHALED ONCE A DAY; Duration: 90 days *Please review and pick correct strength-formulat ion from M-Files options. If intended option is not shown, discontinue and re-order from Quick Search* Not-Taking TEZSPIRE (TEZEPELUMAB-EKKO) 110 mg/mL 210 mg (1.91 mL) Subcutaneus q 4 weeks; Duration: 30 day(s) Active Spiriva Respimat 1.25 MCG/ACT 2 puff(s) inhaled once a day; Duration: 30 day(s) Not-Taking BREO ELLIPTA 200 mcg-25 mcg/inh 1 puff(s) inhaled once a day Not-Taking EPIPEN 2-LUCAS 0.3 mg 0.3 mg intramuscular 1X (may give a second dose in 10-15 minutes for persistent symptoms) Active VENTOLIN HFA CFC free 90 mcg/inh 2 puff(s) inhaled 4 times a day, PRN; Duration: 30 day(s) Active Breo Ellipta 200-25 MCG/ACT 1 puff Inhalation Once a day; Duration: 90 days 08/17/2024 Active predniSONE 20 MG 3 tab(s) orally once a day; Duration: 5 day(s) 07/02/2022 Not-Taking Ventolin HFA 108 (90 Base) MCG/ACT 2 puff(s) inhaled 4 times a day, PRN; Duration: 30 day(s) Active FAMOTIDINE 10 mg 1 tab(s) orally once Not-Taking Vitamin D3 50 MCG (2000 UT) 1 cap(s) orally once a day Active CALCIUM CARBONATE AND VITAMIN D Not-Taking Breo Ellipta 200-25 MCG/ACT 1 puff Inhalation Once a day; Duration: 90 days Active VITAMIN D3 2000 intl units 1 cap(s) orally once a day Not-Taking Cetirizine HCl 10 MG 1 tab(s) orally once a day Active EPIPEN 2-LUCAS 0.3 mg 0.3 mg intramuscular 1X (may give a second dose in 10-15 minutes for persistent symptoms) Not-Taking EpiPen 2-Lucas 0.3 mg 0.3 mg intramuscular 1X (may give a second dose in 10-15 minutes for persistent symptoms) Active Levothyroxine Sodium 112 MCG 1 tab(s) orally once a day Active CETIRIZINE 10 mg 1 tab(s) orally once a day Active Calcium Carbonate-Vitamin D *Please review and pick correct strength-formulat ion from M-Files options. If intended option is not shown, discontinue and re-order from Quick Search* Active SPIRIVA RESPIMAT 1.25 mcg/inh 2 puff(s) inhaled once a day; Duration: 30 days Not-Taking Famotidine 10 MG 1 tab(s) orally once Active LEVOTHYROXINE 112 mcg (0.112 mg) 1 tab(s) orally once a day Not-Taking Immunizations Vaccine Route Administration Date Status Comme nts NOC Pneumovax 23 IM Intramuscular 02/10/2013 Administered Influenza Unknown 06/30/2014 Administered Influenza Unknown 07/04/2015 Administered Influenza Unknown 07/23/2016 Administered Influenza Unknown 07/23/2017 Administered NOC Flucelvax Quadrivalent Unknown 08/22/2020 Refused NOC Fluzone Quadrivalent Unknown 06/24/2018 Administered NOC Fluzone Quadrivalent Unknown 11/25/2018 Refused NOC Fluzone Quadrivalent Unknown 07/25/2022 Administered Given @ [facility] pharmacy per patient Flucelvax Unknown 06/29/2019 Administered Flucelvax Unknown 07/23/2019 Administered NOC Flucelevax Quadrivalent Unknown 06/27/2020 Refused NOC Flucelevax Quadrivalent Unknown 08/22/2020 Administered Covid 19 (Pfizer) Unknown 09/12/2020 Administered Covid 19 (Pfizer) Unknown 10/02/2020 Administered Covid 19 (Pfizer) Unknown 10/03/2020 Administered Covid 19 (Pfizer) Unknown 11/02/2020 Administered Covid 19 (Pfizer) Unknown 09/10/2021 Administered Social History Tobacco Use: Social History Observation Description Date Details (start date - stop date) Former Smoker NA - NA Sex Assigned At : Social History Observation Description Sex Assigned At Female Tobacco Control (Standard) Question Answer Notes Tobacco use: Former smoker How long has it been since you last smoked? Grea ter than 10 years AUDIT-C (Standard) Question Answer Notes Did you have a drink contain ing alcohol in the past year? Yes How often did you have a dri nk containing alcohol in the past year? 2 to 3 times a week (3 points) How many drinks did you have on a typical day when you were drinking in the past year? 1 or 2 drinks (0 point) How often did you have six o r more drinks on one occasion in the past year? Never (0 point) Points 3 Interpretation Positive Problems Problem Type SNOMED Code ICD Code Onset Dates Problem Status W/U Status Risk Notes Problem Information temporarily unavailable Vitamin D deficiency, unspecified (E55.9) Active confirmed Problem Information temporarily unavailable Acute bronchitis, unspecified (J20.9) Active confirmed Problem Information temporarily unavailable Allergic rhinitis due to pollen (J30.1) Active confirmed Problem Information temporarily unavailable Allergic rhinitis due to animal (cat) (dog) hair and dander (J30.81) Active confirmed Problem Information temporarily unavailable Other allergic rhinitis (J30.89) Active confirmed Problem Information temporarily unavailable Chronic sinusitis, unspecified (J32.9) Active confirmed Problem Information temporarily unavailable Moderate persistent asthma, uncomplicated (J45.40) Active confirmed Problem Information temporarily unavailable Severe persistent asthma, uncomplicated (J45.50) Active confirmed Problem Information temporarily unavailable Elevated blood-pressure reading, without diagnosis of hypertension (R03.0) Active confirmed Problem Information temporarily unavailable 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, 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) Active confirmed Problem Information temporarily unavailable Personal history of systemic steroid therapy (Z92.241) Active confirmed Problem Information temporarily unavailable Allergic rhinitis due to pollen (J30.1) Active confirmed Problem Information temporarily unavailable Allergic rhinitis due to animal (cat) (dog) hair and dander (J30.81) Active confirmed Problem Information temporarily unavailable Other allergic rhinitis (J30.89) Active confirmed Problem Information temporarily unavailable Severe persistent asthma, uncomplicated (J45.50) Active confirmed Problem Information temporarily unavailable Other chronic allergic conjunctivitis (H10.45) Active confirmed Problem Information temporarily unavailable Rash and other nonspecific skin eruption (R21) Active confirmed Problem Information temporarily unavailable Dysphagia, unspecified (R13.10) Active confirmed Problem Information temporarily unavailable Vitamin D deficiency, unspecified (E55.9) Active confirmed Vital Signs Respiratory Rate 17 /min 05/04/2025 Oximetry 99 % 06/29/2025 Blood pressure diastolic 79 mm Hg 06/29/2025 Height 67 in 06/29/2025 Blood pressure systolic 152 mm Hg 06/29/2025 Weight 182.2 lbs 05/04/2025 BMI 28.53 kg/m2 05/04/2025 Encounters Encounter Location Date Provider Diagnosis [place] [id number] 05/04/2025 Lola Young Severe persistent asthma, uncomplicated J45.50 ; Allergic rhinitis due to pollen J30.1 ; Allergic rhinitis due to animal (cat) (dog) hair and dander J30.81 ; Other allergic rhinitis J30.89 and Other chronic allergic conjunctivitis H10.45 [facility] [address] 12/08/2024 Lola Young Severe persistent asthma, uncomplicated J45.50 ; Allergic rhinitis due to pollen J30.1 ; Allergic rhinitis due to animal (cat) (dog) hair and dander J30.81 ; Other allergic rhinitis J30.89 and Other chronic allergic conjunctivitis H10.45 [facility] [address] [place] [address] 08/25/2024 Lola Young Severe persistent asthma, uncomplicated J45.50 ; Allergic rhinitis due to pollen J30.1 ; Allergic rhinitis due to animal (cat) (dog) hair and dander J30.81 ; Other allergic rhinitis J30.89 and Other chronic allergic conjunctivitis H10.45 [facility] [address] [place] [address] 03/02/2025 Quinten Win Severe persistent asthma, uncomplicated J45.50 [facility] [place] [address] [place] [address] 02/02/2025 Quinten Win Severe persistent asthma, uncomplicated J45.50 [facility] [place] [address] [place] [address] 01/05/2025 Quinten Win Severe persistent asthma, uncomplicated J45.50 [facility] [address] [place] [address] 11/10/2024 Quinten Win Severe persistent asthma, uncomplicated J45.50 [facility] [place] [address] [place] [address] 10/13/2024 Quinten Win Severe persistent asthma, uncomplicated J45.50 [facility] [place] [address] [place] [address] 07/28/2024 Quinten Win Severe persistent asthma, uncomplicated J45.50 [facility] [address] [place] [address] 06/29/2025 Quinten Win Severe persistent asthma, uncomplicated J45.50 [facility] [address] [place] [address] 06/01/2025 Quinten Win Severe persistent asthma, uncomplicated J45.50 [facility] [place] [address] [place] [address] 03/30/2025 Quinten Win Severe persistent asthma, uncomplicated J45.50 [facility] [address] [place] [address] 05/04/2025 Lola Lemons [facility] [address] [place] [address] 08/17/2024 Lola Lemons Severe persistent asthma, uncomplicated J45.50 Assessments Encounter Date Diagnosis (ICD Code) Assessment Notes Treatment Notes Treatment Clinical Notes Section Notes 07/28/2024 Severe persistent asthma, uncomplicated (ICD-10 - J45.50) 08/17/2024 Severe persistent asthma, uncomplicated (ICD-10 - J45.50) 08/25/2024 Allergic rhinitis due to pollen (ICD-10 - J30.1) Cheryle's allergy symptoms are stable on Zyrtec and nasal sprays. She remains off SCIT, stopping in 08/2017. She still felt she needed shots but did not feel like coming in to get them. She continues to do well with symptomatic control. She continues to be pleased with her care. - If symptoms do worsen, consider restarting shots 08/25/2024 Severe persistent asthma, uncomplicated (ICD-10 - J45.50) Cheryle returns today to continue dosing with Tezspire. Doing well but recently fell -Spirometry today with moderate obstruction. - I gave her a sample of Trelegy back in 2021 which she felt helped more than Breo. Did not qualify for [employer]. Obtaining drugs through [facility]. Last visit I added on Spiriva to Breo. Stopped due to lack of improvement. Will switch to Breztri BID. Rnse out mouth after use. Recommend PFT in 6 months - Continue on TEZSPIRE and follow-up in 4 weeks for interval dosing and evaluation. - She tolerated today's injection without problems. She monitored for 30 minutes following today's injection. Prior Alpha-1 was negative. Our prior ABPA work-up was negative. -She felt Cinqair helped more, consider changing but but she would like to continue Tezspire for now. -UTD on flu shot - Return in 4 weeks for dosing 10/13/2024 Severe persistent asthma, uncomplicated (ICD-10 - J45.50) 11/10/2024 Severe persistent asthma, uncomplicated (ICD-10 - J45.50) 12/08/2024 Allergic rhinitis due to pollen (ICD-10 - J30.1) Cheryle's allergy symptoms are stable on Zyrtec and nasal sprays. She remains off SCIT, stopping in 08/2017. She still felt she needed shots but did not feel like coming in to get them. She continues to do well with symptomatic control. She continues to be pleased with her care. - If symptoms do worsen, consider restarting shots 01/05/2025 Severe persistent asthma, uncomplicated (ICD-10 - J45.50) 02/02/2025 Severe persistent asthma, uncomplicated (ICD-10 - J45.50) 03/02/2025 Severe persistent asthma, uncomplicated (ICD-10 - J45.50) 03/30/2025 Severe persistent asthma, uncomplicated (ICD-10 - J45.50) 12/08/2024 Severe persistent asthma, uncomplicated (ICD-10 - J45.50) Cheryle returns today to continue dosing with Tezspire. Doing well but had a URI last month -Spirometry last visit with moderate obstruction. - I gave her a sample of Trelegy back in 2021 which she felt helped more than Breo. Did not qualify for [employer]. Obtaining drugs through [facility]. Last visit I added on Spiriva to Breo. Stopped due to lack of perceived improvement. Unable to afford Breztri BID. Rnse out mouth after use. Recommend PFT in 6 months - Continue on TEZSPIRE and follow-up in 4 weeks for interval dosing and evaluation. - She tolerated today's injection without problems. She monitored for 30 minutes following today's injection. Prior Alpha-1 was negative. Our prior ABPA work-up was negative. -She felt Cinqair helped more, consider changing but but she would like to continue Tezspire for now. -UTD on flu shot - Return in 4 weeks for dosing 05/04/2025 Severe persistent asthma, uncomplicated (ICD-10 - J45.50) Cheryle returns today to continue dosing with Tezspire. -Spirometry last visit with moderate obstruction. Again obstructed. FEV1 this last year continues to decrease. - I gave her a sample of Trelegy back in 2021 which she felt helped more than Breo. Did not qualify for [employer]. Obtaining drugs through [facility]. Last visit I added on Spiriva to Breo. Stopped due to lack of perceived improvement. Unable to afford Breztri BID. Additional time spent completing [employer] Forms for patient assistance - Continue on TEZSPIRE and follow-up in 4 weeks for interval dosing and evaluation. - She tolerated today's injection without side effects. She monitored for 30 minutes following today's injection. Prior Alpha-1 was negative. Our prior ABPA work-up was negative. -She felt Cinqair helped more, consider changing but but she would like to continue Tezspire for now. -Recommend annual flu shot - Return in 4 weeks for dosing 06/01/2025 Severe persistent asthma, uncomplicated (ICD-10 - J45.50) 06/29/2025 Severe persistent asthma, uncomplicated (ICD-10 - J45.50) 05/04/2025 Allergic rhinitis due to pollen (ICD-10 - J30.1) Cheryle's allergy symptoms are stable on Zyrtec and nasal sprays. She remains off SCIT, stopping in 08/2017. She still felt she needed shots but did not feel like coming in to get them. She continues to do well with symptomatic control. She continues to be pleased with her care. - If symptoms do worsen, consider restarting shots 12/08/2024 Allergic rhinitis due to animal (cat) (dog) hair and dander (ICD-10 - J30.81) Continue avoidance, meds and consider restarting SCIT 08/25/2024 Allergic rhinitis due to animal (cat) (dog) hair and dander (ICD-10 - J30.81) Continue avoidance, meds and consider restarting SCIT 08/25/2024 Other allergic rhinitis (ICD-10 - J30.89) Continue avoidance, meds and consider restarting SCIT 12/08/2024 Other allergic rhinitis (ICD-10 - J30.89) Continue avoidance, meds and consider restarting SCIT 05/04/2025 Allergic rhinitis due to animal (cat) (dog) hair and dander (ICD-10 - J30.81) Continue avoidance, meds and consider restarting SCIT 05/04/2025 Other allergic rhinitis (ICD-10 - J30.89) Continue avoidance, meds and consider restarting SCIT 12/08/2024 Other chronic allergic conjunctivitis (ICD-10 - H10.45) Encouraged allergy avoidance measures and meds as above. If symptoms persist, consider adding additional medications including intraocular antihistamine/m ast cell stabilizer, PRN and consider restarting SCIT 08/25/2024 Other chronic allergic conjunctivitis (ICD-10 - H10.45) Encouraged allergy avoidance measures and meds as above. If symptoms persist, consider adding additional medications including intraocular antihistamine/m ast cell stabilizer, PRN and consider restarting SCIT 05/04/2025 Other chronic allergic conjunctivitis (ICD-10 - H10.45) Encouraged allergy avoidance measures and meds as above. If symptoms persist, consider adding additional medications including intraocular antihistamine/m ast cell stabilizer, PRN and consider restarting SCIT 12/08/2024 Other 01/05/2025 Other 03/02/2025 Other 03/30/2025 Other 02/02/2025 Other 06/29/2025 Other 07/28/2024 Other 06/01/2025 Other 10/13/2024 Other 11/10/2024 Other 08/25/2024 Other Plan Of Treatment Pending Test Test Name Order Date Spirometry 10/29/2023 Next Appt Details Provider Name:Quinten CorcoranVince Cruz , 07/27/2025 10:40:00 AM, [address] [place] [address], [phone], Insurance Providers Payer Name Payer Address Payer Phone Subscriber Number Group Number Insured Name Patient Relationship to Insured Coverage Start Date Coverage End Date [employer] (Medicare) Attention Claims [address] [facility] [place] [address] [id number] Nate Cheryle Self - [place] [address] [id number] Cheryle Sullivan Self - patient is the insured Medical (General) History Medical History History ICD Code COPD Bronchitis Severe persistent asthma, uncomplicated Allergic rhinitis due to pollen Allergic rhinitis due to animal (cat) (d og) hair and dander Other allergic rhinitis Other chronic allergic conjunctivitis Personal history of systemic steroid the rapy Vitamin D deficiency, unspecified Chronic sinusitis, unspecified Surgical History Surgery Date(Month/Year) thyroidectomy Oct 2009 cataract removal 2008 and 2004 tubal ligation 1978 Hospitalization History Reason Date(Month/Year) COPD 5937-8305 thyroidectomy Oct 2009 COPD Jul 2009
--- NOTE | 2025-07-22 14:53 | WPDPFTINT ---
PFT Procedure Performed PFT Procedure Performed Spirometry with Pre/Post Bronchodilator Plethysmography (Lung Vol) Diffusing Cap (DLCO) Flow Vol Loop PFT Interpretation This is a pulmonary function test with pre and post-bronchodilator spirometry, plethysmography and diffusing capacity. The test was performed and results interpreted in accordance with the 2019 and 2005 ATS/ERS Task Force guidelines respectively using the Global Lung Function Initiative-2012 reference equations. Patient demonstrated good effort and cooperation. Reproducibility criteria were met. The quality of the pre bronchodilator spirometry maneuver was Grade A and post bronchodilator spirometry maneuver was Grade A. Findings: Spirometry: There is decreased maximal expiratory airflow at all lung volumes with concave expiratory flow tracing. The contour the inspiratory flow tracing is normal. The pre bronchodilator FVC is 2.26 L, 72% predicted. The pre bronchodilator FEV1 is 1.14 L, 48% predicted. The pre bronchodilator FEV1: FVC ratio is 51%. The post bronchodilator FVC is 2.30 L, representing a 2% increase. The post bronchodilator FEV1 is 1.26 L, representing an 11% increase. The post bronchodilator FEV1: FVC ratio is 55%. Plethysmography: The total lung capacity is 5.12 L, 93% predicted. The functional residual capacity is 3.35 L, 106% predicted. The residual volume is 2.86 L, 121% predicted. The residual volume: Total lung capacity ratio is 56%. Diffusing capacity: The diffusing capacity unadjusted for hemoglobin and carboxyhemoglobin is 13.6, 63% predicted. The diffusing capacity adjusted for alveolar volume is 3.60, 87% predicted. Impression: There is a severe obstructive abnormality. There is no significant improvement after inhaling a single dose of albuterol. The increase in residual volume to total lung volume ratio is consistent with hyperinflation from an obstructive abnormality. The diffusing capacity unadjusted for hemoglobin and carboxyhemoglobin is mildly decreased and normalizes when adjusted for alveolar volume. There are no prior studies for comparison
== END 2025-07-21 10:03 | disposition home or self-care (01) ==
LOC: ANHLAB 10:02
DX: J45.20 Mild intermittent asthma, uncomplicated (principal); R91.8 Other nonspecific abnormal finding of lung field; R05.3 Chronic cough; R94.2 Abnormal results of pulmonary function studies
CPT/HCPCS: 94060; 94726; 94729